=== PATIENT | female | born 2000 | race African-American/Black ===

== ENCOUNTER 2021-02-14 07:06 | Emergency (ER) | payer MEDICAID ==
[~2021-02-14] VITALS: Ht 160 cm; Wt 79.8 kg
[2021-02-14] MEDS ORDERED: LORA-259 PO (07:46)
--- NOTE | 2021-02-14 09:15 | NUR ---
CALLED FOR SW
--- NOTE | 2021-02-14 09:49 | NUR ---
WAITING ON FOR SAFE HOMELESS D/C
--- NOTE | 2021-02-14 10:23 | NUR ---
PT. VERBALIZED UNDERSTANDING OF AFTERCARE INSTRUCTIONS.Patient discharged to home in stable condition. Written and verbal after care instructions given. Patient verbalizes understanding of instruction.
[2021-02-14 10:24] VITALS: BP 128/71
--- NOTE | 2021-02-14 10:30 | NUR ---
[facility] note: SS requested for homeless pt presenting with Depression. SW was unable to interview pt as the patient had already been D/C.
== END 2021-02-14 10:24 | disposition home or self-care (01) ==
LOC: ER 07:13
DX: F41.9 Anxiety disorder, unspecified (principal); F32.9 Major depressive disorder, single episode, unspecified; Z60.2 Problems related to living alone; Z79.899 Other long term (current) drug therapy

== ENCOUNTER 2021-02-15 01:11 | Emergency (ER) | payer MEDICAID ==
[~2021-02-15] VITALS: Ht 160 cm; Wt 79.8 kg
[~2021-02-15 01:11] MED LIST: LORA-259 PO
--- NOTE | 2021-02-15 01:16 | NUR ---
pt bibra and lapd c/o SI with plan to run into the street. Pt [id number] breathing evenly and unlabored. Pt was placed on 5150 by lapd. Pt attached to monitor and pox, changed into gown and belongings placed in locker. Sitter at bedside. Pt given blanket and call light within reach.
[2021-02-15 01:52] LABS: BASOPHILS % (AUTO) 0.4 % (0.0-2.0); EOSINOPHILS % (AUTO) 0.5 % (0.0-6.0); HEMATOCRIT 31 % (33-45); LYMPHOCYTES % (AUTO) 18.7 % (20.0-44.0); MEAN CORPUSCULAR HGB CONC 32 g/dl (31.0-36.0); MEAN CORPUSCULAR VOLUME 83 fL (82-100); MONOCYTES # (AUTO) 0.9 K/uL (0.1-1.30); MONOCYTES % (AUTO) 8.5 % (2.0-12.0); NEUTROPHILS # (AUTO) 7.9 K/uL (1.8-8.9); NEUTROPHILS % (AUTO) 71.9 % (43.0-81.0); PLATELET COUNT (AUTO) 282 K/uL (150-450); RED BLOOD CELL COUNT(AUTO) 3.78 MIL/uL (4.0-5.2)
[2021-02-15 02:10] LABS: CALCIUM, SERUM 8.7 mg/dL (8.5-10.1); CARBON DIOXIDE 24 mmol/L (21-32); CHLORIDE 104 mmol/L (98-107); CREATININE 0.8 mg/dL (0.6-1.3); GLUCOSE 93 mg/dL (74-106); POTASSIUM 3.2 mmol/L (3.5-5.1); SODIUM SERUM 138 mmol/L (136-145); UREA NITROGEN, BLOOD 6 mg/dL (7-18)
[2021-02-15 02:14] LABS: BILIRUBIN,URINE Negative (NEGATIVE); COLOR,URINE YELLOW (YELLOW); LEUKOCYTE ESTERASE ,URINE Negative (NEGATIVE); NITRITE, URINE Negative (NEGATIVE); PROTEIN,URINE Negative (NEGATIVE); UGLUCOSE Negative (NEGATIVE); UROBILINOGEN,URINE 0.2 EU/dL (0.2)
[2021-02-15 02:24] LABS: ALANINE AMINOTRANSFERASE 21 U/L (12-78); ALBUMIN 3.5 g/dL (3.4-5.0); ALCOHOL, BLOOD 4 mg/dL (0-0); ALKALINE PHOSPHATASE 69 U/L (46-116); ASPARTATE AMINOTRANSFERASE 16 U/L (15-37); BILIRUBIN,DIRECT 0.2 mg/dL (0.0-0.2); TOTAL PROTEIN, SERUM 7.3 g/dL (6.4-8.2)
[2021-02-15 02:26] LABS: ACETAMINOPHEN 0 ug/ml (10-30)
--- NOTE | 2021-02-15 02:26 | NUR ---
COVID SWAB COLLECTED AND SENT TO LAB
[2021-02-15] MEDS ORDERED: OLANZAPINE 10 MG VIAL IM ONE ×2 (04:07→04:30)
[2021-02-15] MEDS ORDERED: diphenhydrAMINE HCL 50 MG/ML VIAL ONE ×2 (04:07→12:53)
[2021-02-15] MEDS ORDERED: LORAZEPAM INJ 2 MG/ML VIAL ONE ×2 (04:08→12:54)
--- NOTE | 2021-02-15 04:15 | NUR ---
Patient is resting comfortably in bed with eyes closed. Easily aroused. VSS
[2021-02-15] MEDS ORDERED: LORAZEPAM INJ 2 MG/ML VIAL IV ONE (04:30)
[2021-02-15] MEDS ORDERED: diphenhydrAMINE HCL 50 MG/ML VIAL IM ONE ×2 (04:30→13:00)
--- NOTE | 2021-02-15 07:05 | NUR ---
gave report to ALLY Tyson for amanda
[2021-02-15] MEDS ORDERED: HALOPERIDOL LACTATE INJ 5 MG/ML VIAL ONE (12:53)
[2021-02-15] MEDS ORDERED: HALOPERIDOL LACTATE INJ 5 MG/ML VIAL IM ONE (13:00)
[2021-02-15] MEDS ORDERED: LORAZEPAM INJ 2 MG/ML VIAL IM/IV ONE (13:00)
--- NOTE | 2021-02-15 15:05 | NUR ---
PT IS ACCEPTED AT [facility] BY GOING TO ROOM 149-B # FOR REPORT [phone]
--- NOTE | 2021-02-15 15:10 | NUR ---
CALLED [facility] ETA 60 MINS.
--- NOTE | 2021-02-15 15:20 | NUR ---
REPORT GIVEN TO ALLY MONTES OF [facility] FOR COTY.
[2021-02-15 16:34] VITALS: BP 124/68
--- NOTE | 2021-02-15 16:34 | NUR ---
REPORT GIVEN TO EMS FOR PT TRANSFER TO [facility].
== END 2021-02-15 16:35 ==
LOC: ER 01:13
DX: F23 Brief psychotic disorder (principal); R45.851 Suicidal ideations; F22 Delusional disorders; Z59.0 Homelessness; Z20.822 Contact with and (suspected) exposure to COVID-19
CPT/HCPCS: 36415; 80048; 80076; 80143; 80307; 80320; 81003; 84703; 85025; 87426; 96372 ×2; 96374; 99291; C9803 ×2; J1200 ×2; J1630; J2060 ×2; J3490; U0003; G0480